=== PATIENT | male | born 1945 | race Caucasian/White ===

== ENCOUNTER 2019-11-21 09:33 | Observation (INO) ==
[2019-11-21] MEDS ORDERED: NS 0.9% 1000 ml BAG 1,000 ML IV ONE (10:03)
[2019-11-21 10:22] LABS: ABS Eosinophils 0.2 10^3/ul (0-0.6); ABS Lymphocytes 1.1 10^3/ul (1.0-4.8); ABS Monocytes 0.4 10^3/ul (0-0.8); Eosinophil % 2.2 %; Hematocrit 46 % (42-52); Hemoglobin 15.5 g/dL (14.0-18.0); Lymphocyte % 15.8 %; Mean Corpuscular HGB Conc 34 g/dL (31-36); Mean Corpuscular Hemoglobin 31 pg (27-31); Mean Corpuscular Volume 92 fL (80-94); Mean Platelet Volume 8.8 fL (7.4-10.4); Platelet Count 191 10^3/uL (150-450); Red Blood Count 4.97 10^6 /uL (4.18-5.48); Red Cell Distribution Width 14 % (10-15); White Blood Count 7.1 10^3/uL (3.5-10.8)
[2019-11-21 10:39] LABS: Albumin 4.1 g/dL (3.2-5.2); Albumin/Globulin Ratio 1.8 (1-3); BUN/Creatinine Ratio 19.7 (8-20); EGFR African American 70.5 (>60); EGFR Non-African American 58.2 (>60); Globulin 2.3 g/dL (2-4); Potassium 4.5 mmol/L (3.5-5.0); Total Bilirubin 0.6 mg/dL (0.2-1.0); Total Protein 6.4 g/dL (6.4-8.9)
[2019-11-21] MEDS ORDERED: Iodixanol (CONTRAST) 320 MG/ML 100 ML SDV IV ONE (10:56)
[2019-11-21] MEDS ORDERED: Ondansetron 4 mg VIAL 2 MG/ML 2 ml VIAL IV ONE (11:06)
[2019-11-21] MEDS ORDERED: Ondansetron 4 mg VIAL 2 MG/ML 2 ml VIAL ONE (11:07)
[2019-11-21] MEDS ORDERED: Metoclopramide 5 MG/ML VIAL (10 mg) IV SLOW PU ONE (13:56)
[2019-11-21] MEDS ORDERED: Diazepam 5 mg TAB (*) PO ONE (14:49)
[2019-11-21] MEDS ORDERED: NS 0.9% 1000 ml BAG 1,000 ML IV SCH (17:15)
[2019-11-21] MEDS ORDERED: Ondansetron 4 mg VIAL 2 MG/ML 2 ml VIAL IV PRN (17:22)
[2019-11-21] MEDS ORDERED: TRAVOPROST BOTH EYES SCH (18:00)
[2019-11-21] MEDS: BRINZOLAMIDE BOTH EYES SCH (21:58)
[2019-11-21] MEDS: PTO:Brimonidine/Timolol 0.2%/0.5% OPTH(NF) SOL 5 ML BOTH EYES SCH (22:05)
[2019-11-22] MEDS ORDERED: Multivitamins/Mins AREDS2 (NF) CAP PO SCH (09:00)
[2019-11-22] MEDS: PTO:Brimonidine/Timolol 0.2%/0.5% OPTH(NF) SOL 5 ML BOTH EYES SCH (09:37)
[2019-11-22] MEDS: BRINZOLAMIDE BOTH EYES SCH (09:38)
[2019-11-22 12:23] LABS: Magnesium 1.8 mg/dL (1.9-2.7)
[2019-11-22 12:29] LABS: EGFR African American 79.4 (>60); EGFR Non-African American 65.6 (>60)
[2019-11-22 12:30] LABS: Free T3 2.6 pg/mL (2.5-3.9); TSH (Thyroid Stimulating Horm) 2.25 mcIU/mL (0.34-5.60)
[2019-11-22 12:31] LABS: Free T4 0.73 ng/dL (0.61-1.12)
[2019-11-22 12:41] LABS: Thyroid Peroxidase Antibodies 0.72 IU/mL (<9)
[2019-11-22 13:02] VITALS: BP 104/58
[2019-11-22] MEDS ORDERED: Magnesium Sulfate 2 gm BAG 2 GM/50 ML BAG IVPB ONE (14:13)
== END 2019-11-22 17:00 | disposition home or self-care (01) ==
LOC: MEDTELE 09:33 → ED 09:33 → MEDTELE 17:58
PROVIDERS: ADMIT Internal Medicine; ATTEND Internal Medicine